=== PATIENT | female | born 1990 | race Caucasian/White ===

== ENCOUNTER 2020-06-05 11:08 | Emergency (ER) | payer BC, SELFPAY ==
--- NOTE | 2020-06-05 11:21 | HMH.EDUTC ---
[facility] [place] Disposition Clinical Impression: STD exposure Disposition: Home, Self-Care Condition on Discharge: Good Instructions: DI for Chlamydia Additional Instructions: Follow up with your primary care provider to go over your results when they are back. Take the medication as directed. Follow up with your wrapping clerk. Follow the instructions on the std teaching sheet that was given to you. GO TO THE ER FOR ANY WORSENING SYMPTOMS OR CONCERNS Prescriptions: Ondansetron [Zofran 4mg ODT] 4 mg PO Q8HP PRN #9 tab.rapdis PRN Reason: Nausea Transmission Status: Received by [id number] Azithromycin 1,000 mg PO ONCE #2 tab Transmission Status: Received by [id number] Referrals: Kati Garza [Primary Care Provider] - Medical Decision Making - Medical Records Medical records reviewed: No: I reviewed the patient's medical records. - Han Inquiry Pt receiving controlled substance: No Vital Signs: 06/05/20 11:24 06/05/20 12:01 Temperature 98.4 F 98 F Temperature Source Oral Pulse Rate 67 Pulse Rate [Right] 63 Respiratory Rate 14 15 Blood Pressure 130/83 Blood Pressure [Right Arm] 139/88 Blood Pressure Mean [Right Arm] 105 Blood Pressure Source [Right Arm] Automatic Cuff Blood Pressure Position [Right Arm] Sitting 02 Sat by Pulse Oximetry 99 Oxygen Delivery Method Room Air Orders (Tests/Meds): ED MEDICATIONS Discontinued Medications Generic Name Dose Route Start Last Admin Trade Name Freq PRN Reason Stop Dose Admin Ceftriaxone Sodium 500 gm 06/05/20 11:41 Ceftriaxone 1gm Vial IM 06/05/20 11:42 ONCE ONE Protocol Ceftriaxone Sodium 500 mg 06/05/20 11:48 06/05/20 11:53 Ceftriaxone 500mg Vial IM 06/05/20 11:49 500 mg ONCE ONE Administration Protocol Lidocaine HCl 0 ml 06/05/20 11:48 06/05/20 11:53 Lidocaine 1% 5ml Pf Vial IM 06/05/20 11:49 1.8 ml ONCE ONE Administration [facility] [place] HPI - General Stated complaint: wants STD test Time Seen by Provider: 06/05/20 11:21 - History of Present Illness Provider Complaint: She states that for the past week she has had yellowish vaginal discharge and irritation. She was told by her ex-boyfriend that he has been exposed to chlamydia. - Related Data Previous Rx's Medication Instructions Recorded amoxicillin 500 mg capsule 500 mg PO BID 10 Days #20 cap 05/17/19 Azithromycin 1,000 mg PO ONCE #2 tab 06/05/20 Ondansetron [Zofran 4mg ODT] 4 mg PO Q8HP PRN #9 tab.rapdis 06/05/20 Allergies Allergy/AdvReac Type Severity Reaction Status Date / Time No Known Allergies Allergy Verified 06/05/20 11:13 [facility] History - Hepatitis A Screen Attestation statement:: This patient has been screened for Hepatitis A risk factors. I have reviewed the patient's past medical history: Yes Laterality Cases: Bilateral: Tonsillectomy - Social History Smoking Status: Current every day smoker Tobacco Type: cigarettes Alcohol Intake: never Substance Use Type: denies use Occupational Status: employed Housing: house Household Members: family Family Hx:: Non-contributory ROS Obtained: Yes All systems reviewed & no additional complaints - Constitutional Constitutional: Denies chills, Denies fever(s) - Eyes Eyes: Denies eye discharge - ENT Ears, Nose, Mouth, and Throat: Denies sore throat - Cardiovascular Cardiovascular: Denies chest pain - Respiratory Respiratory: Denies chest congestion, Denies cough - Gastrointestinal Gastrointestingal: Denies: abdominal pain, diarrhea, nausea, vomiting - Genitourinary Female Genitourinary: Reports as per HPI - Musculoskeletal Musculoskeletal: Denies back pain - Integumentary/Breasts Skin/Breast: Denies redness, Denies rash, Denies wounds Physical Exam - General General appearance: alert, in no apparent distress - Head Head exam: atraumatic, normocephalic, normal inspection - Eye Eye exam: Pre
[2020-06-05 11:24] VITALS: BP 139/88; PULSE 63; RESP 14; TEMP 36.9; O2SAT 99; BMI 28.3
[2020-06-05 12:01] VITALS: BP 130/83; PULSE 67; RESP 15; TEMP 36.6
[2020-06-07 23:22] LABS: Neisseria gonorrhoeae, NAA Negative (Negative)
== END 2020-06-05 12:03 | disposition home or self-care (01) ==
PROVIDERS: Emergency Provider Nurse Practitioner Family; PCP Physician Assistant
DX: Z20.2 Contact with and (suspected) exposure to infections with a predominantly sexual mode of transmission (principal); F17.210 Nicotine dependence, cigarettes, uncomplicated
CPT/HCPCS: 87491; 87591; 96372; 99202; G0463

== ENCOUNTER 2020-10-22 16:54 | Emergency (ER) | payer BC, SELFPAY ==
[2020-10-22 16:55] VITALS: BP 134/97; PULSE 114; RESP 20; TEMP 37.2; O2SAT 98; BMI 30.1
[2020-10-22 17:19] LABS: Adenovirus,PCR Not Detected (NotDetected); Bordetella Pertussis Not Detected (NotDetected); Chlamydophila Pneumoniae, PCR Not Detected (NotDetected); Coronavirus 19, PCR Not Detected (NotDetected); Coronavirus 229E Not Detected (NotDetected); Coronavirus NL63 Not Detected (NotDetected); Coronavirus OC43 Not Detected (NotDetected); Coronovirus HKU1,PCR Not Detected (NotDetected); Human Metapneumovirus Not Detected (NotDetected); Influenza A, PCR Not Detected (NotDetected); Influenza AH1, 2009 Not Detected (NotDetected); Influenza AH1, PCR Not Detected (NotDetected); Influenza AH3,PCR Not Detected (NotDetected); Influenza B, PCR Not Detected (NotDetected); Mycoplasma Pneumoniae, PCR Not Detected (NotDetected); Parainfluenza 1, PCR Not Detected (NotDetected); Parainfluenza 2, PCR Not Detected (NotDetected); Parainfluenza 3, PCR Not Detected (NotDetected); Parainfluenza 4, PCR Not Detected (NotDetected); Respiratory Syncytial Virus Not Detected (NotDetected); Rhinovirus/Enterovirus Not Detected (NotDetected)
[2020-10-22 17:21] LABS: UTC Strep Screen (Rapid) Negative (Negative)
[2020-10-22 17:25] VITALS: TEMP 39.5
--- NOTE | 2020-10-22 17:31 | HMH.EDUTC ---
[facility] [place] Clinical Impression: Sinusitis Qualifiers: Sinusitis location: unspecified location Chronicity: unspecified Qualified Code(s): J32.9 - Chronic sinusitis, unspecified Disposition: Home, Self-Care Condition on Discharge: Good Instructions: Sinusitis, DI for Sinusitis, DI for Urinary Tract Infection (UTI), DI for Fever (Symptom) -- Adult Additional Instructions: *Monitor Temp, Over the counter Motrin or Tylenol as directed/as needed Tylenol every 4 hours and Motrin every 6 hours (as long as your family doctor has told you that you can take it) for fever or pain. and straight to ER if unable to lower temp less than 101.0 after medication given *Warm salt water gargles may help to soothe the throat *Throat Lozenges *Warm fluids like tea with honey may help to soothe the throat *Sleep elevated *Humidifier/Vaporizer Take medication as prescribed Your throat swab was sent for culture. Those results are typically sent to your primary care. Be sure to follow up in 2-3 days with your family doctor/primary care physician if no improvement so they can review those result and treat if necessary. If you don?t have a primary care doctor, I recommend you get one but in the mean time, you will have to return to a walk in clinic Follow up IMMEDIATELY for new or worsening symptoms or no Noticeable improvement over the next 48-72 hours. 911 for difficulty breathing or swallowing You were tested for today for COVID19 your test result should be back in the next 24-48 hours, you may call to the [facility] to see if your test results are back in the next 48 hours [phone] [facility] hours are 9am-9pm You was given a handout with instructions for Self Quarantine and Self isolation for while you wait on test results and what to do if they are positive If you are positive the Health Dept will be contacting you also Prescriptions: Amoxicillin/Potassium Clav [Augmentin 875-125 Tablet] 1 tab PO Q12H 10 Days #20 tab Transmission Status: Received by [id number] methylPREDNISolone [Medrol 4mg tab] 4 mg PO DIRECTED #21 tab Transmission Status: Received by [facility] Referrals: Kati Garza [Primary Care Provider] - As needed Time of Disposition: 18:35 Medical Decision Making - Han Inquiry Pt receiving controlled substance: No Han was queried for this patient: No Vital Signs: 10/22/20 16:55 10/22/20 17:25 10/22/20 18:36 Temperature 99.0 F 103.1 F H 98.9 F Temperature Source Oral Oral Pulse Rate 114 H Pulse Rate [Right Brachial] 114 H Respiratory Rate 20 20 Blood Pressure 134/97 H Blood Pressure [Right Arm] 134/97 H Blood Pressure Mean [Right Arm] 109 Blood Pressure Source [Right Arm] Automatic Cuff Blood Pressure Position [Right Arm] Sitting 02 Sat by Pulse Oximetry 98 Oxygen Delivery Method Room Air - Lab Data Lab results reviewed: Yes: I reviewed the patient's lab results. Lab Results 10/22/20 17:07: Strep Scn Rapid Clinic Negative 10/22/20 17:08: Chlamy pneumoniae PCR Not detected, Adenovirus (PCR) Not detected, B. pertussis DNA (PCR) Not detected, Coronavirus OC43 (PCR) Not detected, Coronavirus HKU1 (PCR) Not detected, Coronavirus 229E (PCR) Not detected, SARS-CoV-2 (PCR) Not detected, Coronavirus NL63 (PCR) Not detected, Human Metapneumovir PCR Not detected, Influenza A (H1) PCR Not detected, Influ A (H1N1/09) PCR Not detected, Influenza A (H3) PCR Not detected, Influenza Type A (PCR) Not detected, Influenza Type B (PCR) Not detected, M. pneumoniae (PCR) Not detected, Parainfluenza 1 (PCR) Not detected, Parainfluenza 2 (PCR) Not detected, Parainfluenza 3 (PCR) Not detected, Parainfluenza 4 (PCR) Not detected, RSV (PCR) Not detected, Entero/Rhino (PCR) Not detected 10/22/20 17:24: Tst Clinic Negative 10/22/20 17:32: Urine Color Yellow, Urine Appearance Clear, Urine pH 6.0, Ur Specific [place] 1.025, Urine Protein Negative, Urine Glucose (UA) Negative, Urine Ketones Negativ
[2020-10-22 17:41] LABS: Apearance,Urine Clear (Clear); Bilirubin,Urine Negative (Negative); Blood, Urine Trace (Negative); Color,Urine Yellow (Yellow); Glucose,Urine (UA) Negative (Negative); Ketones,Urine Negative (Negative); Protein,Urine Negative (Negative); Specific Gravity, Urine 1.025 (1.005-1.030); UTC Leukocyte Esterase,Urine Trace (Negative); UTC Nitrate,Urine Negative (Negative); Urobilinogen,Urine 0.2 EU/dl (0.2)
[2020-10-22 17:42] LABS: UTC Pregnancy Test, Urine Negative (Negative)
[2020-10-22 18:36] VITALS: BP 134/97; PULSE 114; RESP 20; TEMP 37.2; O2SAT 98
== END 2020-10-22 18:40 | disposition home or self-care (01) ==
PROVIDERS: Emergency Provider Nurse Practitioner; PCP Physician Assistant
DX: J32.9 Chronic sinusitis, unspecified (principal); F17.210 Nicotine dependence, cigarettes, uncomplicated
CPT/HCPCS: 81003; 81025; 87581; 87633; 87798; 87880; 99202; G0463

== ENCOUNTER 2021-03-22 11:42 | Emergency (ER) | payer BC, SELFPAY ==
[2021-03-22 13:22] VITALS: BP 149/63; PULSE 89; RESP 18; TEMP 36.6; O2SAT 97; BMI 30.1
[2021-03-22 13:36] VITALS: BP 149/63; PULSE 89; RESP 18; TEMP 36.6
[2021-03-22 13:36] LABS: UTC Influenza A Antigen Negative (Negative); UTC Influenza B Antigen Negative (Negative)
[2021-03-22 13:37] LABS: UTC Strep Screen (Rapid) Positive (Negative)
--- NOTE | 2021-03-22 14:14 | HMH.EDUTC ---
[facility] [place] Disposition Clinical Impression: Otitis media Qualifiers: Otitis media type: suppurative Chronicity: acute Laterality: bilateral Recurrence: non-recurrent Spontaneous tympanic membrane rupture: without spontaneous rupture Qualified Code(s): H66.003 - Acute suppurative otitis media without spontaneous rupture of ear drum, bilateral Disposition: Home, Self-Care Condition on Discharge: Good Instructions: Middle Ear Infection Additional Instructions: Drink plenty of fluids. Take tylenol or ibuprofen for pain or fever. Take the medications as directed. Follow up with your regular doctor. GO TO THE ER FOR ANY WORSENING SYMPTOMS Prescriptions: Brompheniramine/Pseudoephed/Dm [Bromfed Dm Cough Syrup] 5 ml PO Q6HP PRN #240 ml PRN Reason: Cough Transmission Status: Received by [facility] Amoxicillin [Amoxicillin 875MG Tab] 875 mg PO Q12H #20 tab Transmission Status: Received by [facility] methylPREDNISolone [Medrol] 4 mg PO DIRECTED 6 Days #21 packet Transmission Status: Received by [facility] Referrals: Provider,Referral, [Primary Care Provider] - Time of Disposition: 14:32 Medical Decision Making - Medical Records Medical records reviewed: No: I reviewed the patient's medical records. - Han Inquiry Pt receiving controlled substance: No Vital Signs: 03/22/21 13:22 03/22/21 13:36 Temperature 97.9 F 97.9 F Temperature Source Oral Pulse Rate 89 Pulse Rate [Left] 89 Respiratory Rate 18 18 Blood Pressure 149/63 H Blood Pressure [Right Arm] 149/63 H Blood Pressure Mean [Right Arm] 91 02 Sat by Pulse Oximetry 97 - Lab Data Lab results reviewed: Yes: I reviewed the patient's lab results. Lab Results 03/22/21 13:35: Strep Scn Rapid Clinic Positive A 03/22/21 13:35: Influenza Type A Ag Negative, Influenza Type B Ag Negative [facility] [place] HPI - General Stated complaint: headache,ear pain,congested Time Seen by Provider: 03/22/21 14:14 Mode of Arrival: Ambulatory Source of Information: Patient Limitations: No Limitations Description of Symptoms (Recalled from Triage Doc. by RN): pt c/o bilateral ear aches, sore throat, congestion and back pain. x4 days. son has flu. HEENT Symptoms (Recalled from RN notes): Yes (bilateral ear aches, sore throat and congestion) Resp Symptoms (Recalled from RN notes): No Skin Symptoms (Recalled from RN notes): No MS Symptoms (Recalled from RN notes): No Functional Status (Recalled from RN notes): wnl - History of Present Illness Provider Complaint: She c/o 2 days of left ear pain, cough, congestion, and a scratchy sore throat. Her son has influenza, but she has stayed away from him and she does not feel like she has the flu. - Related Data Previous Rx's Medication Instructions Recorded Amoxicillin/Potassium Clav 1 tab PO Q12H 10 Days #20 tab 10/22/20 [Augmentin 875-125 Tablet] methylPREDNISolone [Medrol 4mg 4 mg PO DIRECTED #21 tab 10/22/20 tab] Amoxicillin [Amoxicillin 875MG 875 mg PO Q12H #20 tab 03/22/21 Tab] Brompheniramine/Pseudoephed/Dm 5 ml PO Q6HP PRN #240 ml 03/22/21 [Bromfed Dm Cough Syrup] methylPREDNISolone [Medrol] 4 mg PO DIRECTED 6 Days #21 03/22/21 packet Allergies Allergy/AdvReac Type Severity Reaction Status Date / Time No Known Allergies Allergy Verified 06/05/20 11:13 - Worker's Comp Is this a Worker's Comp case?: No [facility] History - Hepatitis A Screen Drug use history?: No High risk sexual behaviors?: No History of sexually transmitted infection?: No Currently employed?: No Childcare worker?: No Do you have indoor plumbing?: Yes Do you have electricity?: Yes Attestation statement:: This patient has been screened for Hepatitis A risk factors. I have reviewed the patient's past medical history: Yes Laterality Cases: Bilateral: Tonsillectomy - Social History Smoking Status: Current every day smoker Tobacco Type: cigarettes # Packs/Day (
== END 2021-03-22 14:42 | disposition home or self-care (01) ==
PROVIDERS: Emergency Provider Nurse Practitioner Family
DX: J02.0 Streptococcal pharyngitis (principal); H66.003 Acute suppurative otitis media without spontaneous rupture of ear drum, bilateral
CPT/HCPCS: 87804; 87880; 99203; G0463

== ENCOUNTER → 2021-05-09 09:11 | Outpatient (CLI) | payer BC, SELFPAY ==
[2021-05-09 09:25] VITALS: BMI 25.7
== END ==
PROVIDERS: Visit Provider Nurse Practitioner
DX: Z20.822 Contact with and (suspected) exposure to COVID-19 (principal)
CPT/HCPCS: C9803; U0003; U0005

== ENCOUNTER 2022-08-06 18:29 | Emergency (ER) | payer OTHER, BC, SELFPAY ==
[2022-08-06 18:30] VITALS: BP 131/78; PULSE 67; RESP 16; TEMP 36.8; O2SAT 97; BMI 34.5
[2022-08-06 19:31] VITALS: BP 132/78; PULSE 82; RESP 18; O2SAT 97
[2022-08-06 19:32] LABS: Microscopic, Urine URINE MICROSCOPIC (MICROSCOPIC)
[2022-08-06 19:36] LABS: Basophils % 0.4 % (0.1-2.0); Eosinophils # 0.2 K/mm3 (0.0-0.4); Eosinophils % 1.8 % (0.1-12.0); Hematocrit 39.9 % (37.0-47.0); Hemoglobin 12.9 g/dL (12.2-16.2); Lymphocytes # 3.3 K/mm3 (0.7-4.5); Lymphocytes % 32.2 % (10-50); Mean Corpuscular HGB Conc 32.2 g/dL (31.8-35.4); Mean Corpuscular Hemoglobin 30.3 pg (27.0-31.2); Mean Corpuscular Volume 94.1 fl (81-99); Mean Platelet Volume 6.8 fl (7.4-10.4); Monocytes # 0.5 K/mm3 (0.1-1.0); Monocytes % 4.6 % (1.7-9.3); Neutrophils # 6.2 K/mm3 (1.8-7.8); Neutrophils % 61.1 % (37.0-80.0); Platelet Count 440 K/mm3 (142-424); Red Blood Count 4.24 M/mm3 (4.20-5.40); Red Cell Distribution Width 13.1 % (11.5-17.5); White Blood Count 10.1 K/mm3 (4.8-10.8)
[2022-08-06 19:37] LABS: Appearance,Urine CLEAR (Clear); Bilirubin,Urine Negative (Negative); Blood, Urine 3+ (Negative); Color,Urine YELLOW (Yellow); Glucose,Urine (UA) Negative (Negative); Ketones,Urine Negative (Negative); Leukocyte Esterase,Urine Negative (Negative); Nitrate,Urine Negative (Negative); Protein,Urine Negative (Negative); Specific Gravity, Urine >= 1.030 (1.005-1.030); Urobilinogen,Urine 0.2 EU/dl (0.2)
--- NOTE | 2022-08-06 19:43 | US_ITS ---
PROCEDURE INFORMATION: Exam: US , Transvaginal and US Duplex Artery or Vein, Ovaries, Limited Exam date and time: 08/06/2022 7:44 PM Age: 31 years old Clinical indication: Lmp or gestational age (in weeks): 7w6d ? ? ; antepartum complications; Bleeding; TECHNIQUE: Imaging protocol: Real-time transvaginal obstetrical ultrasound of the maternal pelvis and a first trimester with image documentation. Transvaginal imaging was used for better evaluation of the fetus, adnexa, and/or cervix. Real-time duplex ultrasound scan of the arterial or venous flow of the ovaries with B-mode, color Doppler flow and spectral waveform analysis, Limited Duplex. Duplex exam was performed to evaluate for torsion and other vascular conditions. COMPARISON: No relevant prior studies available. FINDINGS: GESTATION: Gestation: Gestational sac is elongated. There is an intrauterine with 2 fetuses. heart rate: None detected. Placenta: Unremarkable. Amniotic fluid: Amniotic fluid is unremarkable for gestational age. BIOMETRY: Gestational age (AUA): By crown-rump length, fetus A has estimated gestational age of 8 weeks +6 days and no heart tones. By crown-rump length, fetus B has an estimated gestational age of 9 weeks +2 days, but no heart tones. MATERNAL: Right ovary/adnexa: Unremarkable right ovarian venous waveforms. Left ovary/adnexa: Corpus luteal cyst in the left ovary is noted. Unremarkable left ovarian arterialvenous waveforms. Intraperitoneal space: Trace free fluid in the pelvis. IMPRESSION: Findings represent failed twin .
[2022-08-06 19:47] LABS: Alanine Aminotransferase 24 U/L (12-78); Albumin Level 4.3 g/dl (3.5-5.0); Albumin/Globulin Ratio 1.3 (1.1-1.8); Alkaline Phosphatase 69 U/L (38-126); Anion Gap 12.5 mEq/L (5-15); Aspartate Amino Transferase 29 U/L (14-36); Bilirubin,Total 0.3 mg/dl (0.2-1.3); Blood Urea Nitrogen 6 mg/dl (7-17); Calcium 8.8 mg/dl (8.4-10.2); Carbon Dioxide 24 mmol/L (22.0-30.0); Chloride 103 mmol/L (98-107); Creatinine Clearance Estimated 287 mL/min (50-200); Estimated Glomerular Filt Rate 187 ml/min (>60); GFR (African American) 227 ML/MIN (>60); Globulin 3.4 g/dL (1.3-3.2); Glucose 92 mg/dl (74-100); Potassium 3.5 mmoL/L (3.5-5.1); Sodium 136 mmol/L (136-145); Total Protein,Serum 7.7 g/dl (6.3-8.2)
--- NOTE | 2022-08-06 20:16 | PC.NURSE ---
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
--- NOTE | 2022-08-06 20:52 | HMH.EDGENADL ---
Discharge Plan Disposition Patient Disposition: Home, Self-Care Condition: Good Prescriptions Prescriptions: No Action methylprednisolone 4 MG tablets,dose pack 4 mg PO DIRECTED 6 Days Qty: 21 0RF slwbmieoxsaxfyw-bpcwhrypw-KE 118 ML syrup 5 ml PO Q6HP PRN (Reason: Cough) Qty: 240 0RF amoxicillin 875 MG tablet 875 mg PO Q12H Qty: 20 0RF methylprednisolone 4 MG tablet 4 mg PO DIRECTED Qty: 21 0RF Rx Instructions: Take as directed on package instructions amoxicillin-pot clavulanate 1 EACH tablet 1 tab PO Q12H 10 Days Qty: 20 0RF Referrals Follow up/Referrals: Brenda Bruce APRN [Primary Care Provider] - See instructions Activity Restrictions/Add. Instructions Additional Instructions/Restrictions: You were evaluated in the emergency department today. Please follow-up outpatient closely with your horse wrangler. I recommend calling them in the morning. Return to the emergency department for any new or worsening symptoms. Clinical Impressions Clinical Impression: Incomplete inevitable Instructions Patient Instructions: Dealing With Miscarriage, DI for Miscarriage, DI for Vaginal Bleeding Discharge ED Provider: Jenn Valentino General Adult HPI General Chief complaint: Vaginal Bleeding Stated complaint: abd pain, vaginal bleeding, 8 wks preg Time Seen by Provider: 08/06/22 20:06 Mode of Arrival: Ambulatory Source of Information: Patient Limitations: No Limitations Description of Symptoms (Recalled from ER Triage Doc. by RN): pt states 8 weeks . around 6pm began spotting soaking through two pairs of pants and having rt side abd pain. pt denies any bleeding or pain currently History of Present Illness HPI narrative: This patient is a 31-year-old at estimated 8 weeks gestational age presenting to the emergency department for evaluation with concern for lower abdominal cramping and vaginal bleeding. She states that she is having sharp right-sided pain. She has not yet had an ultrasound this . No other concerns noted, such as fevers, chills, lightheadedness, or other issues. No dysuria or abnormal vaginal discharge. Patient states that she was well prior to today. Her blood type is O+. Related Data Previous Rx's Medication Instructions Recorded amoxicillin 875 mg-potassium 1 tab PO Q12H 10 days #20 tabs 10/22/20 clavulanate 125 mg tablet methylprednisolone 4 mg tablet 4 mg PO DIRECTED #21 tabs 10/22/20 amoxicillin 875 mg tablet 875 mg PO Q12H #20 tabs 03/22/21 bxaunkghgkklivm-npruupmwcmkqjwy-UN 5 ml PO Q6HP PRN Cough #240 mL 03/22/21 2 mg-30 mg-10 mg/5 mL oral syrup methylprednisolone 4 mg tablets in 4 mg PO DIRECTED 6 days #21 03/22/21 a dose pack packets Allergies Allergy/AdvReac Type Severity Reaction Status Date / Time No Known Allergies Allergy Verified 06/05/20 11:13 [facility] Disclaimer: The information contained in this section may have been updated after the patient was seen, as this information can be updated by other users. Social History Smoking Status: Never smoker alcohol intake: never substance use type: denies use current occupational status: other Travel in the last 8 weeks: None household members: family housing: house ROS Obtained: Yes All systems reviewed & no additional complaints except as documented 14 point review of systems obtained and negative except as mentioned in HPI. Physical Exam General General appearance: alert and in no apparent distress Head Head exam: atraumatic and normocephalic Eye Eye exam: Present normal appearance, PERRL and EOMI ENT ENT exam: Present normal exam and normal oropharynx Neck Neck exam: Present normal inspection and full ROM Chest Chest inspection: Present normal inspection and symmetric chest wall rise Respiratory Respiratory exam: Present normal lung sounds bilaterally; Absent respiratory di
[2022-08-06 21:02] LABS: Bacteria,Urine Trace /lpf; WBC,Urine Occasional #/hpf (0-3)
[2022-08-06 21:08] VITALS: BP 134/73; PULSE 80; RESP 18; TEMP 36.8; O2SAT 97
== END 2022-08-06 21:13 | disposition home or self-care (01) ==
PROVIDERS: Emergency Medicine; Emergency Provider Emergency Medicine; PCP Nurse Practitioner Family
DX: O03.4 Incomplete spontaneous abortion without complication (principal)
CPT/HCPCS: 76817; 80053; 81001; 84702; 85025; 99284; 99285

== ENCOUNTER 2024-01-20 11:31 | Emergency (ER) | payer SELFPAY ==
[2024-01-20 11:40] VITALS: BP 132/97; PULSE 78; RESP 20; TEMP 36.6; O2SAT 99; BMI 31.8
--- NOTE | 2024-01-20 11:54 | ED_ITS ---
Discharge Plan Disposition Patient Disposition: Home, Self-Care Condition: Good Prescriptions Prescriptions: New methylprednisolone [Medrol (Demario)] 4 mg tablets,dose pack See Rx Instructions .Route .COMPLEX 6 Days Qty: 21 0RF Rx Instructions: taper pack; qwcrsmeumnryrwz-uqksrnhfd-TY [Bromfed DM] 2-30-10 mg/5 mL syrup 10 ml PO Q6H PRN (Reason: cold symptoms) Qty: 200 0RF amoxicillin-pot clavulanate 875-125 mg Tablet 1 tab PO Q12H Qty: 20 0RF Referrals Follow up/Referrals: Brenda Bruce APRN [Primary Care Provider] - See instructions Activity Restrictions/Add. Instructions Additional Instructions/Restrictions: *Monitor Temp, Over the counter Motrin or Tylenol as directed/as needed Tylenol every 4 hours and Motrin every 6 hours (as long as your family doctor has told you that you can take it) for fever or pain. and straight to ER if unable to lower temp less than 101.0 after medication given *Warm salt water gargles may help to soothe the throat *Throat Lozenges? *Warm fluids like tea with honey may help to soothe the throat? *Sleep elevated *Humidifier/Vaporizer *Bromfed may cause drowsiness. Know how it effects you (your child) before driving, caring for small child, or sending your child to school. Not other antihistamines/allergy medications while taking bromfed Follow up IMMEDIATELY for new or worsening symptoms or no Noticeable improvement over the next 48-72 hours. 911 for difficulty breathing or swallowing Clinical Impressions Clinical Impression: Sinusitis, Otitis media Stand Alone Forms Stand Alone Forms: Work/School Release Instructions Patient Instructions: DI for Sinusitis, Sinusitis, Middle Ear Infection Print Language Print Language: Taiwanese Discharge ED Provider: Keri Albrecht [facility] [place] HPI General Stated complaint: ear pain, sinus pressure/congestion Mode of Arrival: Ambulatory Source of Information: Patient Limitations: No Limitations Time Seen by Provider: 01/20/24 11:54 Description of Symptoms (Recalled from Triage Doc. by RN): PATIENT C/O SINUS PRESSURE, EAR PAIN, HEADACHE, GREEN NASAL DRAINAGE, AND CONGESTION THAT STARTED 3 DAYS AGO HEENT Symptoms (Recalled from RN notes): Yes Resp Symptoms (Recalled from RN notes): No Skin Symptoms (Recalled from RN notes): No MS Symptoms (Recalled from RN notes): No Functional Status (Recalled from RN notes): WNL History of Present Illness Provider Complaint: Patient states that she has been having sinus pain and pressure, pain in her left ear, cough and headache that has got worse over the last 3 days States today she wasnt feeling any better so she came in to get checked Related Data Previous Rx's ?Medication ?Instructions ?Recorded amoxicillin 875 mg-potassium 1 tab PO Q12H #20 tabs 01/20/24 clavulanate 125 mg tablet lazyuptbgzqgemz-abdxvjqpfhgawfc-NJ 10 ml PO Q6H PRN cold symptoms 01/20/24 2 mg-30 mg-10 mg/5 mL oral syrup #200 mL (Bromfed DM) methylprednisolone 4 mg tablets in See Rx Instructions .Route 01/20/24 a dose pack (Medrol (Demario)) .COMPLEX 6 days #21 tabs Allergies Allergy/AdvReac Type Severity Reaction Status Date / Time No Known Allergies Allergy Verified 06/05/20 11:13 Worker's Comp Is this a Worker's Comp case?: No [facility] Disclaimer: The information contained in this section may have been updated after the patient was seen, as this information can be updated by other users. Medical History (Updated 01/20/24 @ 12:09 by Keri Albrecht APRN) Anxiety Urinary tract infection Surgical History (Updated 01/20/24 @ 11:44 by Raya Gonzalez RN) History of tonsillectomy History of section Social History Smoking Status: Never smoker alcohol intake: never substance use type: denies use current occupational status: other Travel in the last 8 weeks: None household members: family housing: house ROS Obtained: Yes All systems reviewed & no additional complaints except as documented and Yes Systems reviewed as appropriate & no additional complaints except as documented Constitutional Constitutional: Reports system reviewed and no additional complaints, except as documented, Reports as per HPI and Reports headache(s) ENT Ears, Nose, Mouth, and Throat: Reports system reviewed and no additional complaints, except as documented, Reports as per HPI, Reports otalgia, Reports headache(s), Reports sinus pain, Reports sinus pressure and Reports sore throat Cardiovascular Cardiovascular: Reports system reviewed and no additional complaints, except as documented and Reports as per HPI Respiratory Respiratory: Reports system reviewed and no additional complaints, except as documented and Reports as per HPI Gastrointestinal Gastrointestingal: Reports system reviewed and no additional complaints, except as documented and as per HPI Neurologic Neurologic: Reports headache(s) Physical Exam General General appearance: alert and in no apparent distress ENT ENT exam: Present mucous membranes moist Expanded ENT Exam TM/Canal exam: Left TM: erythema and bulging Nose exam: Present sinus tenderness Throat exam: Present other (PND noted) Respiratory Respiratory exam: Present normal lung sounds bilaterally; Absent respiratory distress or wheezes Cardiovascular Cardiovascular exam: Present regular rate, normal rhythm and normal heart sounds Neurological Exam Neurological exam: Present alert, oriented X3 and normal gait Medical Decision Making Medical Records Screening: Per USPSTF and CDC recommendations, given the prevalence of disease in our region, it is our hospital?s policy to screen for HIV and viral Hepatitis for all patients aged 18 and over and those with ongoing risk factors. Han Inquiry Pt receiving controlled substance: No Han was queried for this patient: No Vital Signs: 01/20/24 11:40 Temperature 97.9 F Temperature Source Oral Pulse Rate [Left Brachial] 78 Respiratory Rate 20 Blood Pressure [Left Arm] 132/97 H Blood Pressure Mean [Left Arm] 108 Blood Pressure Source [Left Arm] Automatic Cuff Blood Pressure Position [Left Arm] Sitting 02 Sat by Pulse Oximetry 99 Oxygen Delivery Method Room Air
[2024-01-20 12:20] VITALS: BP 132/97; PULSE 78; RESP 20; TEMP 36.6; O2SAT 99
== END 2024-01-20 12:27 | disposition home or self-care (01) ==
PROVIDERS: Emergency Provider Nurse Practitioner; PCP Nurse Practitioner Family
DX: J01.90 Acute sinusitis, unspecified (principal); H66.93 Otitis media, unspecified, bilateral
CPT/HCPCS: 99213; G0381

== ENCOUNTER 2024-02-16 15:13 | Emergency (ER) | payer SELFPAY ==
[2024-02-16 15:24] VITALS: BP 159/108; PULSE 78; RESP 18; TEMP 36.6; O2SAT 98; BMI 28.3
--- NOTE | 2024-02-16 15:28 | ED_ITS ---
Discharge Plan Disposition Patient Disposition: Home, Self-Care Condition: Good Prescriptions Prescriptions: New cefdinir 300 mg capsule 300 mg PO BID Qty: 20 0RF fluticasone propionate [Flonase Allergy Relief] 50 mcg/actuation spray,suspension 2 spray intranasal DAILY Qty: 16 0RF Rx Instructions: administer into each nostril daily methylprednisolone [Medrol (Demario)] 4 mg tablets,dose pack See Rx Instructions .Route .COMPLEX 6 Days Qty: 21 0RF Rx Instructions: taper pack; Referrals Follow up/Referrals: Brenda Bruce APRN [Primary Care Provider] - See instructions Activity Restrictions/Add. Instructions Additional Instructions/Restrictions: *Monitor Temp, Over the counter Motrin or Tylenol as directed/as needed Tylenol every 4 hours and Motrin every 6 hours (as long as your family doctor has told you that you can take it) for fever or pain. and straight to ER if unable to lower temp less than 101.0 after medication given *Warm salt water gargles may help to soothe the throat *Throat Lozenges? *Warm fluids like tea with honey may help to soothe the throat? *Sleep elevated *Humidifier/Vaporizer *Flonase 2 sprays in each nostril daily but be aware that it may take 2-3 days before you notice improvement Take medication as prescribed Follow up with Family Doctor or ENT if no improvement or any worsening of symptoms Follow up IMMEDIATELY for new or worsening symptoms or no Noticeable improvement over the next 48-72 hours. 911 for difficulty breathing or swallowing Clinical Impressions Clinical Impression: Otitis media Qualifiers: Otitis media type: suppurative Chronicity: acute Laterality: left Recurrence: non-recurrent Spontaneous tympanic membrane rupture: without spontaneous rupture Qualified Code(s): H66.002 - Acute suppurative otitis media without spontaneous rupture of ear drum, left ear Sinusitis Qualifiers: Sinusitis location: unspecified location Chronicity: unspecified Qualified Code(s): J32.9 - Chronic sinusitis, unspecified Instructions Patient Instructions: Middle Ear Infection, DI for Sinusitis Print Language Print Language: Mauritanian Discharge ED Provider: Keri Albrecht [facility] [place] General Stated complaint: ear apin Mode of Arrival: Ambulatory Source of Information: Patient Time Seen by Provider: 02/16/24 15:28 Description of Symptoms (Recalled from Triage Doc. by RN): BILATERAL EAR PAIN X1 MONTH WITH SINUS CONGESTION AND GREEN DRAINAGE HEENT Symptoms (Recalled from RN notes): Yes Resp Symptoms (Recalled from RN notes): No Skin Symptoms (Recalled from RN notes): No MS Symptoms (Recalled from RN notes): No Functional Status (Recalled from RN notes): WNL History of Present Illness Provider Complaint: Patient states that she has been having pain in her ears and sinuses on and off for about a month States that she was recently seen and treated with Augmentin States it helped while she was taking it and after she stopped taking the pain and pressure in her ears and sinuses returned States today it was bothering her still so she came in to get it checked again to see if her ears was infected or it was her sinuses Related Data Previous Rx's ?Medication ?Instructions ?Recorded cefdinir 300 mg capsule 300 mg PO BID #20 caps 02/16/24 fluticasone propionate 50 2 spray intranasal DAILY #16 grams 02/16/24 mcg/actuation nasal spray,suspension (Flonase Allergy Relief) methylprednisolone 4 mg tablets in See Rx Instructions .Route 02/16/24 a dose pack (Medrol (Demario)) .COMPLEX 6 days #21 tabs Allergies Allergy/AdvReac Type Severity Reaction Status Date / Time No Known Allergies Allergy Verified 06/05/20 11:13 Worker's Comp Is this a Worker's Comp case?: No [facility] Disclaimer: The information contained in this section may have been updated after the patient was seen, as this information can be updated by other users. Medical History (Updated 02/16/24 @ 15:37 by Keri Albrecht APRN) Anxiety Urinary tract infection Surgical History (Updated 01/20/24 @ 11:44 by Raya Gonzalez RN) History of tonsillectomy History of section Social History Smoking Status: Never smoker alcohol intake: never substance use type: denies use current occupational status: other Travel in the last 8 weeks: None household members: family housing: house ROS Obtained: Yes All systems reviewed & no additional complaints except as documented and Yes Systems reviewed as appropriate & no additional complaints except as documented Constitutional Constitutional: Reports system reviewed and no additional complaints, except as documented and Reports as per HPI ENT Ears, Nose, Mouth, and Throat: Reports system reviewed and no additional complaints, except as documented, Reports as per HPI, Reports otalgia, Reports sinus pain and Reports sinus pressure Cardiovascular Cardiovascular: Reports system reviewed and no additional complaints, except as documented and Reports as per HPI Respiratory Respiratory: Reports system reviewed and no additional complaints, except as documented and Reports as per HPI Gastrointestinal Gastrointestingal: Reports system reviewed and no additional complaints, except as documented and as per HPI Musculoskeletal Musculoskeletal: Reports system reviewed and no additional complaints, except as documented and Reports as per HPI Physical Exam General General appearance: alert and in no apparent distress ENT ENT exam: Present mucous membranes moist Expanded ENT Exam TM/Canal exam: Left TM: erythema (mild redness noted) and Bilateral TM: bulging Nose exam: Present sinus tenderness Throat exam: Present normal inspection Respiratory Respiratory exam: Present normal lung sounds bilaterally; Absent respiratory distress or wheezes Cardiovascular Cardiovascular exam: Present regular rate, normal rhythm and normal heart sounds Neurological Exam Neurological exam: Present alert, oriented X3 and normal gait Medical Decision Making Medical Records Screening: Per USPSTF and CDC recommendations, given the prevalence of disease in our region, it is our hospital?s policy to screen for HIV and viral Hepatitis for all patients aged 18 and over and those with ongoing risk factors. Han Inquiry Pt receiving controlled substance: No Han was queried for this patient: No Vital Signs: 02/16/24 15:24 Temperature 97.8 F Temperature Source Oral Pulse Rate [Right Radial] 78 Respiratory Rate 18 Blood Pressure [Left Arm] 159/108 H Blood Pressure Mean [Left Arm] 125 02 Sat by Pulse Oximetry 98
[2024-02-16 15:47] VITALS: BP 159/108; PULSE 78; RESP 18; TEMP 36.6
== END 2024-02-16 15:51 | disposition home or self-care (01) ==
PROVIDERS: Emergency Provider Nurse Practitioner; PCP Nurse Practitioner Family
DX: H66.002 Acute suppurative otitis media without spontaneous rupture of ear drum, left ear (principal); J32.9 Chronic sinusitis, unspecified; H92.03 Otalgia, bilateral; R09.81 Nasal congestion
CPT/HCPCS: 99212; G0381